=== PATIENT | male | born 1980 | race Caucasian/White ===

== ENCOUNTER 2017-09-18 17:27 | Observation (INO) | payer BC ==
[~2017-09-18] VITALS: Ht 180.3 cm; Wt 84.4 kg
[2017-09-18] MEDS ORDERED: ZOFRAN IV PRN (18:00)
[2017-09-18] MEDS ORDERED: TYLENOL PO PRN (18:00)
--- NOTE | 2017-09-18 18:05 | PCM.EKG ---
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
[2017-09-18 18:17] VITALS: BP 128/84
[2017-09-18 18:18] LABS: BASOPHIL % 0.6 % (0.0-0.2); EOSINOPHIL # 0.3 10^3/uL (0.0-0.2); EOSINOPHIL % 4.8 % (0.0-5.0); HEMOGLOBIN 13.7 g/dL (13.9-16.3); LYMPHOCYTES % 28.9 % (24.0-44.0); MEAN CELL HGB 26.9 pg (26-34); MEAN CELL HGB CONCENTRATION 32.9 g/dL (33-37); MEAN CORP VOLUME 81.8 fL (78-100); MEAN PLATELET VOLUME 9.9 fL (7.8-11.0); MONOCYTES # 0.9 10^3/uL (0.3-0.8); MONOCYTES % 12.1 % (5.0-12.0); NEUTROPHIL # 3.7 10^3/uL (1.8-7.7); NEUTROPHILS % 53.2 % (41.0-85.0); RED CELL DISTRIBUTION WIDTH 12.9 % (11.5-14.5)
[2017-09-18 18:45] LABS: CARBON DIOXIDE 28.8 mmol/L (20.0-32)
[2017-09-18 18:46] LABS: ALANINE AMINOTRANSFERASE(ML) 24 U/L (12-78); ALKALINE PHOSPHATASE 100 U/L (50-136); ASPARTATE AMINO TRANSFERASE 18 U/L (0-35); CALCIUM 9.2 mg/dL (8.4-10.5); GLUCOSE 135 mg/dL (70-110)
[2017-09-18] MEDS ORDERED: LOVENOX SQ SCH (19:00)
--- NOTE | 2017-09-18 19:00 | NUR ---
Change of shift report RECEIVED CHANGE OF SHIFT FROM SANDY BOLTON RN. ASSUMED CARE OF THE PATIENT. WALKING ROUNDS DONE. PATIENT RESTING IN BED. HOB ELEVATED. RESPIRATIONS EVEN AND NON LABORED. FAMILY MEMBER AT BEDSIDE. BED LOCKED IN LOW POSITION, SR UP X 2. CALL LIGHT WITHIN REACH. WILL CONTINUE TO MONITOR
[2017-09-18 19:56] VITALS: BP 124/80
--- NOTE | 2017-09-18 19:58 | NUR ---
PATIENT RESTING IN BED. HOB ELEVATED. RESPIRATIONS EVEN AND NON LABORED. GIRLFRIEND IN BED WITH THE PATIENT. BED LOCKED IN LOW POSITION, SR UP X 2. CALL LIGHT WITHIN REACH. WILL CONTINUE TO MONITOR
--- NOTE | 2017-09-18 20:09 | NUR ---
DR. MUÑOZ PATIENT SITTING IN BED, HOB ELEVATED. DR. MUÑOZ AT BEDSIDE TALKING TO THE PATIENT. SIGNIFICANT OTHER AT BEDSIDE. NO DISTRESS NOTED. SR UP X 2. BED LOCKED IN LOW POSITION. CALL LIGHT WITHIN REACH. WILL CONTINUE TO MONITOR
--- NOTE | 2017-09-18 21:40 | NUR ---
FAMILY MEMBERS X 2 LEFT THE UNIT
--- NOTE | 2017-09-18 22:52 | NUR ---
PATIENT RESTING IN BED WITH EYES OPEN. HOB ELEVATED. RESPIRATIONS EVEN AND NON-LABORED. NO DISTRESS NOTED AT THIS TIME. BED LOCKED IN LOW POSITION. CALL LIGHT WITHIN REACH. WILL CONTINUE TO MONITOR
[2017-09-19 01:26] VITALS: BP 140/81
[2017-09-19 05:06] VITALS: BP 124/75
--- NOTE | 2017-09-19 05:30 | NUR ---
PATIENT RESTING IN BED RESPIRATIONS EVEN AND NON-LABORED. DENIES CHEST PAIN OR DISCOMFORT. CALL LIGHT WITHIN REACH. DENIES ANY NEEDS AT THIS TIME. BED LOCKED IN LOW POSITION. WILL CONTINUE TO MONITOR
--- NOTE | 2017-09-19 06:30 | NUR ---
REPORT RECEIVED REPORT RECEIVED FROM THE TYPE COPYIST
--- NOTE | 2017-09-19 07:08 | NUR ---
Change of shift report CHANGE OF SHIFT REPORT GIVEN TO ALLIE BARON. RELINQUISH CARE OF THE PATIENT. WALKING ROUNDS DONE. PATIENT RESTING IN BED. HOB ELEVATED. RESPIRATIONS EVEN AND NON LABORED. NO DISTRESS NOTED. BED LOCKED IN LOW POSITION, SR UP X 2. CALL LIGHT WITHIN REACH. WILL CONTINUE TO MONITOR
--- NOTE | 2017-09-19 07:40 | NUR ---
DAILY ASSESSMENT DAILY ASSESSMENT COMPLETED, Pt IN BED IN HIGH KATZ POSITION, DENIES ANY PAIN AND DISCOMFORT AT THIS TIME, CALL LIGHT WITH IN REACH, BED IN LOW POSITION, WILL CONTINUE TO MONITOR.
[2017-09-19 08:04] VITALS: BP 118/75
[2017-09-19] MEDS ORDERED: CELEXA PO SCH (09:30)
[2017-09-19] MEDS ORDERED: CITA20TA9 PO (09:46)
--- NOTE | 2017-09-19 09:52 | PRM.DC ---
Discharge Summary Date of Discharge: Sep 19, 2017 Reason for Visit: Chest pain History Present Illness: (1) Depression SEVERITY: MILD PERSISTENT Status: Chronic ICD Code: F32.9 - Major depressive disorder, single episode, unspecified SNOMED: 36516299 Assessment & Plan: Take Citalopram daily (2) Chest pain Status: Resolved ICD Code: R07.9 - Chest pain, unspecified SNOMED: 25539891 Assessment & Plan: non-cardiac chest pain General: Alert, Oriented X3, Cooperative, No acute distress HEENT: PERRLA, EOMI, Mucous membr. moist/pink Neck: Supple, No JVD Lungs: Clear to auscultation, Normal air movement Heart: Regular rate, Normal S1, Normal S2 Abdomen: Normal bowel sounds, Soft, No tenderness Extremities: No clubbing, No cyanosis, No edema Skin: No breakdown Neuro: Normal speech, Strength at 5/5 X4 ext, Cranial nerves 3-12 NL Psych/Mental Status: Mental status NL, Mood NL Results(Labs/Rad) Laboratory Tests Test 09/18/17 18:09 09/18/17 21:41 09/19/17 04:52 White Blood Count 7.0 10^3/uL Red Blood Count 5.10 10^6/uL Hemoglobin 13.7 g/dL Hematocrit 41.7 % Mean Corpuscular Volume 81.8 fL Mean Corpuscular Hemoglobin 26.9 pg Mean Corpuscular Hemoglobin Concent 32.9 g/dL Red Cell Distribution Width 12.9 % Platelet Count 227 10^3/uL Mean Platelet Volume 9.9 fL Neutrophils (%) (Auto) 53.2 % Lymphocytes (%) (Auto) 28.9 % Monocytes (%) (Auto) 12.1 % Neutrophils # (Auto) 3.7 10^3/uL Lymphocytes # (Auto) 2.0 10^3/uL Monocytes # (Auto) 0.9 10^3/uL Absolute Immature Granulocyte (auto 0.03 10^3 u/L Eosinophils % 4.8 % Basophils % 0.6 % Basophils # 0.0 10^3/uL Eosinophil Count 0.3 10^3/uL Sodium Level 141 mmol/L Potassium Level 3.7 mmol/L Chloride Level 103.0 mmol/L Carbon Dioxide Level 28.8 mmol/L Anion Gap 12.9 Blood Urea Nitrogen 12 mg/dL Creatinine 1.08 mg/dL Estimated GFR () 92.6 BUN/Creatinine Ratio 11.0 Glucose Level 135 mg/dL Calcium Level 9.2 mg/dL Magnesium Level 2.0 mg/dL Total Bilirubin 0.3 mg/dL Aspartate Amino Transf (AST/SGOT) 18 U/L Alanine Aminotransferase (ALT/SGPT) 24 U/L Alkaline Phosphatase 100 U/L Total Creatine Kinase 95 U/L Creatine Kinase MB < 0.5 ng/mL Troponin I < 0.02 ng/mL < 0.02 ng/mL < 0.02 ng/mL Pro-B-Type Natriuretic Peptide 13 pg/mL Total Protein 7.5 g/dL Albumin 4.2 g/dL Globulin 3.3 Thyroid Stimulating Hormone (TSH) 0.716 mIU/mL Percent Immature Gran (Cell Imm) 0.40 % Helicobacter pylori Screen NEGATIVE Scheduled Citalopram Hydrobromide (Celexa), 20 MG PO DAILY Sepsis Evaluation @ Discharge Course Blood Pressure Systolic: 118 Blood Pressure Diastolic: 75 Blood Pressure Mean: 89 Notes see dictated report Plan Discharge Date: Sep 19, 2017 Dicharge DX: 1. Non-cardiac chest pain, 2. Depression Discharge Disposition: Stable Plan Medication per discharge list Diet and activity as tolerated Follow up with PCP 2-4 weeks Follow up with Cardiology for echocardiogram results Discharge plans discussed with patient, he is his own decision maker and does understand and concur with plans Time spent 25 minutes Problem Qualifiers (1) Depression: Depression Type: other depression Qualified Codes: F32.89 - Other specified depressive episodes REFUGIO MUÑOZ MD Sep 19, 2017 09:52
[2017-09-19 11:57] VITALS: BP 113/63
[2017-09-19 13:17] VITALS: BP 113/63
--- NOTE | 2017-09-19 13:26 | NUR ---
DISCHARGED Pt DISCHARGED, DEINED WHEELCHAIR, SELF AMBULATED, ACCOMPANIED BY FAMILY , EXITCARE EDUCATION ON DISCHARGE PACKET AND MED CITALOPRAM WWER PROVIDED TO Pt, Pt VERBALIZED UNDERSTANDING.
--- NOTE | 2017-09-19 15:01 | ECHO ---
DATE OF SERVICE: 09/19/2017 INDICATIONS: A 37-year-old gentleman with SVT tachycardia, chest pain. An echocardiographic study was requested to evaluate for any structural disease, functional heart condition, or for any abnormal wall motion abnormalities. FINDINGS: 1. Study quality was fair. 2. Underlying rhythm was sinus rhythm. 3. LV function was preserved. EF was 55% to 60%. Mild septal hypokinesia was noted. Minimal LVH. No LVOT obstruction. LV dimensions were normal at 4.7 cm. 4. Right ventricular size and EF were normal. 5. Incidental finding of obturator band in the right ventricle, normal finding. 6. Atrial size normal in both sides. 7. Mitral valve was of normal appearance, normal opening and coaptation pattern, no regurgitation or stenosis. Mitral valve Doppler signal exam across the mitral inflow showed normal diastolic parameters with a normal E to A wave ratio. The gradient across the mitral valve was estimated to be around 1 mmHg, and therefore no significant stenosis can be seen and no regurgitation. 8. Aortic valve morphology was uncertain. The valve was likely trileaflet. I cannot rule out an infraaortic membrane formation. At the short axis view, there was a structure that looked like a membrane in the LVOT. No LVOT obstruction was seen. The velocity at the LVOT was uninterrupted. There was mild convergence of flow. LVOT gradient was around 4 mmHg. 9. Mild tricuspid regurgitation. PA pressure was normal at around 30 mmHg. 10. No pericardial effusion. 11. Inferior vena cava was normal at 1.2 cm in size, with normal respiratory variation. IMPRESSION: 1. Preserved EF at 55% to 60%, mild septal hypokinesia, minimal LVH, no LVOT obstruction, normal LV dimension. 2. Normal RV size and EF. 3. Normal atrial size. 4. No significant mitral pathology, normal diastolic parameters. 5. Aortic valve morphology was uncertain, likely trileaflet. Cannot rule out an infraaortic membrane. No LVOT obstruction could be seen and the gradient was preserved. 6. Ascending aorta was normal in size. 7. Normal PA pressure. 8. No pericardial effusion. 9. Normal IVC size. Joo Sanchez MD DR: JAVI/eric JOB# [id number]
--- NOTE | 2017-09-21 03:12 | HPH ---
ADMIT DATE: 09/18/2017 CHIEF COMPLAINT: Chest pain. HISTORY OF PRESENT ILLNESS: The patient is a 37-year-old man with a past medical history only significant for some clinical signs of depression, who presented for direct admission because of reported chest pain. His chest pain was nonspecific. Reportedly, he had had an EKG performed which showed some initial concerns to the academic affairs specialist. He has had no recent travel and no known sick contacts. He denied any associated shortness of breath, nausea, or vomiting. He has had no previous cardiac problems. He takes no routine medications. PAST MEDICAL HISTORY: Only includes clinical signs of depression. PAST SURGICAL HISTORY: He reports no recent surgeries. ALLERGIES: NO KNOWN DRUG ALLERGIES. HOME MEDICATIONS: He does not take any routine home medications. SOCIAL HISTORY: He denied any current alcohol, tobacco, or illicit drug use history. He is a former smoker. FAMILY HISTORY: Negative for early coronary artery disease or diabetes. REVIEW OF SYSTEMS: CARDIAC: He complained of some chest pain. No shortness of breath or dyspnea on exertion. PULMONARY: No cough, sputum production, or pleuritic chest pain. GASTROINTESTINAL: No nausea, vomiting, diarrhea, or constipation. All else negative in the 10-point Review of Systems, except as in the HPI. PHYSICAL EXAMINATION: VITAL SIGNS: Vital upon arrival: Height 180.3 cm, weight 84.4 kilograms, temperature 98.1 degrees Fahrenheit, pulse 90, respiratory rate 17, blood pressure 128/84 mmHg, and O2 saturation 97% on room air. GENERAL: He was alert, in no acute distress at the time of exam. HEENT: Pupils were equal, round, and reactive to light. Sclerae were anicteric. Oropharynx was clear. Mucous membranes were moist. NECK: The neck was supple, no lymphadenopathy. CARDIOVASCULAR: At the time of exam was regular rate and rhythm. PULMONARY: The lungs were clear bilaterally, no wheezing. ABDOMEN: The abdomen was soft. Bowel sounds were present. Nontender to palpation. EXTREMITIES: No cyanosis, clubbing, or significant edema. NEUROLOGIC: Grossly nonfocal. LABORATORY DATA: CBC: White count 7.0, hemoglobin 13.7, and platelets 227. DIFFERENTIAL: 53% % neutrophils, 29% lymphocytes, and 12% monocytes. CHEMISTRY PANEL: Sodium 141, potassium 3.7, chloride 103, CO2 28, BUN 12, creatinine 1.08, glucose 135, calcium 9.2, magnesium 2.0, total bilirubin 0.3, AST 18, ALT 24, alkaline phosphatase 100, total CK 95, CK-MB less than 0.5, troponin I less than 0.02 x 3, ProBNP 13, total protein 7.5, albumin 4.2, and TSH 0.76. H. pylori: Negative. ASSESSMENT AND PLAN: The patient is a 37-year-old man with complaints of chest pain, with a history of depression, and a distant history of tobacco use. 1. From a cardiovascular standpoint, we will get an echocardiogram and follow serial cardiac enzymes. 2. He has a history of depression. We will start him on citalopram. 3. DVT prophylaxis with Lovenox. 4. Overnight, he clinically showed no signs on telemetry of any acute process; enzymes were negative x 3, and an echocardiogram was performed. He will follow up with Cardiology for the results. 5. Routine discharge to home. DISCHARGE MEDICATIONS: He will be discharged on citalopram for depression. DISCHARGE FOLLOWUP: With primary care physician in 1 to 2 weeks. He will follow up with Cardiology for the echocardiogram results. DISCHARGE DIET and ACTIVITY: As tolerated. DISCHARGE CONDITION: Clinically stable. The discharge plans were discussed with the patient; he is his own decision maker and does understand and concurs with the plans. Time spent on this History and Physical and Discharge was 45 minutes. Ramesh Alcala MD DR: ROSANNA/eric JOB# [id number]
== END 2017-09-19 13:26 | disposition home or self-care (01) ==
LOC: UNDOADMOB 17:27 → MS 17:27 → UNDOADMOB 09-19 09:17
PROVIDERS: ADMIT Internal Medicine; ATTEND Internal Medicine
DX: F32.9 Major depressive disorder, single episode, unspecified (principal); R07.89 Other chest pain; Z87.891 Personal history of nicotine dependence
CPT/HCPCS: 36415 ×2; 80053; 82550; 82553; 83735; 83880; 84443; 84484 ×3; 85025; 86677; 93005; 93307; 96372; G0378 ×20; J1650